=== PATIENT | male | born 1995 | race Caucasian/White ===

== ENCOUNTER 2017-02-01 20:42 | Emergency (ER) | payer OTHER ==
[~2017-02-01] VITALS: Ht 175.3 cm; Wt 86.2 kg
[2017-02-01 20:42] VITALS: BP 136/74
[2017-02-01] MEDS ORDERED: MULT1TAB10 PO (20:51)
[2017-02-01] MEDS ORDERED: PARO40TA2 PO (20:51)
[2017-02-01] MEDS ORDERED: ROZE8TAB9 PO (20:51)
[2017-02-01] MEDS ORDERED: CELE100C PO (20:51)
== END 2017-02-01 22:11 | disposition left against medical advice (07) ==
LOC: M ED 21:43
DX: H93.90 Unspecified disorder of ear, unspecified ear (principal); Z53.29 Procedure and treatment not carried out because of patient's decision for other reasons

== ENCOUNTER 2017-03-16 16:01 | Emergency (ER) | payer OTHER ==
[~2017-03-16] VITALS: Ht 175.3 cm; Wt 83.9 kg
[~2017-03-16 16:01] MED LIST: CELE100C PO; MULT1TAB10 PO; PARO40TA2 PO; ROZE8TAB9 PO
[2017-03-16] MEDS ORDERED: CELE-19 PO (16:10)
[2017-03-16] MEDS ORDERED: LUNE1TAB5 PO (16:10)
[2017-03-16 16:46] LABS: MEAN CORPUSCULAR HEMOGLOBIN 28.6 pg (27.0-33.0); MEAN CORPUSCULAR HGB CONC 36.1 g/dl (32.0-36.5); MEAN CORPUSCULAR VOLUME 79.3 fl (80.0-96.0); RED CELL DISTRIBUTION WIDTH 12.7 % (11.5-14.5)
[2017-03-16 17:09] LABS: METHADONE URINE NEGATIVE (NEGATIVE)
[2017-03-16 17:18] LABS: ALBUMIN 4.4 GM/DL (3.2-5.2); ALBUMIN/GLOBULIN RATIO 1.42 (1.00-1.93); ALKALINE PHOSPHATASE 97 U/L (45-117); ALT/SGPT 46 U/L (12-78); ANION GAP 11 MEQ/L (8-16); AST/SGOT 34 U/L (15-37); BILIRUBIN,DIRECT < 0.1 MG/DL (0.0-0.2); BILIRUBIN,TOTAL 0.4 MG/DL (0.2-1.0); BLOOD UREA NITROGEN 10 MG/DL (7-18); CARBON DIOXIDE LEVEL 24 MEQ/L (21-32); CHLORIDE LEVEL 103 MEQ/L (98-107); GLOMERULAR FILTRATION RATE > 60.0 (>60); GLUCOSE, FASTING 88 MG/DL (70-105); POTASSIUM SERUM 3.6 MEQ/L (3.5-5.1); SODIUM LEVEL 138 MEQ/L (136-145); TOTAL PROTEIN 7.5 GM/DL (6.4-8.2)
[2017-03-16] MEDS ORDERED: NICOTINE 21MG/24HR 1 EA TRANSDERMAL TD ONE (17:45)
[2017-03-16 23:31] VITALS: BP 133/84
== END 2017-03-16 23:35 | disposition home or self-care (01) ==
LOC: M ED 16:55
DX: F43.0 Acute stress reaction (principal); Z79.899 Other long term (current) drug therapy; Z88.2 Allergy status to sulfonamides
CPT/HCPCS: 36415; 80048; 80076; 80306; 84443; 85027; 99284; G0480

== ENCOUNTER 2017-04-15 11:32 | Inpatient (IN) | payer OTHER ==
[~2017-04-15] VITALS: Ht 175.3 cm; Wt 89.3 kg
[~2017-04-15 11:32] MED LIST changes: +CELE-19 PO; +LUNE1TAB5 PO
[2017-04-15 12:24] LABS: MEAN CORPUSCULAR HEMOGLOBIN 28.3 pg (27.0-33.0); MEAN CORPUSCULAR HGB CONC 35.2 g/dl (32.0-36.5); MEAN CORPUSCULAR VOLUME 80.3 fl (80.0-96.0); RED CELL DISTRIBUTION WIDTH 12.7 % (11.5-14.5); WHITE BLOOD COUNT 6.9 K/mm3 (4.0-10.0)
[2017-04-15 12:55] LABS: METHADONE URINE NEGATIVE (NEGATIVE)
[2017-04-15 13:05] LABS: ALBUMIN 4.5 GM/DL (3.2-5.2); ALBUMIN/GLOBULIN RATIO 1.32 (1.00-1.93); ALKALINE PHOSPHATASE 91 U/L (45-117); ALT/SGPT 37 U/L (12-78); ANION GAP 4 MEQ/L (8-16); AST/SGOT 22 U/L (15-37); BILIRUBIN,DIRECT < 0.1 MG/DL (0.0-0.2); BILIRUBIN,TOTAL 0.7 MG/DL (0.2-1.0); BLOOD UREA NITROGEN 13 MG/DL (7-18); CALCIUM LEVEL 9.3 MG/DL (8.5-10.1); CARBON DIOXIDE LEVEL 27 MEQ/L (21-32); CHLORIDE LEVEL 104 MEQ/L (98-107); CREATININE FOR GFR 0.94 MG/DL (0.70-1.30); GLOMERULAR FILTRATION RATE > 60.0 (>60); GLUCOSE, FASTING 79 MG/DL (70-105); POTASSIUM SERUM 4.4 MEQ/L (3.5-5.1); SODIUM LEVEL 135 MEQ/L (136-145); TOTAL PROTEIN 7.9 GM/DL (6.4-8.2)
[2017-04-15 15:06] VITALS: BP 121/75
[2017-04-15] MEDS ORDERED: MOM 30ML SUSPENSION UDC PO PRN (16:00)
[2017-04-15] MEDS ORDERED: MAALOX 30 ML SUSP *UDC PO PRN (16:00)
[2017-04-15] MEDS ORDERED: traZODone 50 MG TAB PO PRN (16:00)
[2017-04-15] MEDS: NICOTINE 14 MG/24 HR TRANSDERMAL TD SCH (16:32)
[2017-04-15 18:30] VITALS: BP_SYST 121
[2017-04-15] MEDS: CelecoXIB (CeleBREX) 100 MG CAP PO SCH (20:54)
[2017-04-15] MEDS ORDERED: PARoxetine 10MG TABLET PO SCH (21:00)
[2017-04-16 06:25] VITALS: BP 143/65
[2017-04-16] MEDS: NICOTINE 14 MG/24 HR TRANSDERMAL TD SCH (08:38)
--- NOTE | 2017-04-16 09:11 | HPEPDOC ---
Medical History and Physical Date of Admission Apr 15, 2017 at 13:25 History and Physical PCP: [facility] ATTENDING: Dr. Hany Wilkins HPI: 22yoM admitted to [facility] for unspecified depressive disorder, being medically examined today. No acute medical complaints today. Denies any fevers, chills, weakness, fatigue, [place], CP, SOB, cough, palpitations, abdominal pain, N/V /D or changes in bowel or bladder habits. PMHx: ODIN. 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 ROS: As noted in HPI, otherwise 11pt ROS of systems reviewed and unremarkable. PE: GEN: 22 yo M, appears stated age. Well-nourished, well developed. No acute distress. Alert and oriented x 3. Pleasant, interactive. HEENT: Normocephalic, atraumatic. Pupils are equal, round, and reactive to light. Extraocular movements are intact. No nystagmus appreciated. Sclera are nonicteric. Conjunctiva without injection. Nose midline. Nasal turbinates without bogginess. EACs both patent BL. TMs both visualized and light with good cone of light, no bulging or erythema. No facial asymmetry. Moist mucous membranes. Dentition fair. Pharynx pink and moist, no cobblestoning. Neck supple , trachea midline. No lymphadenopathy or thyromegaly appreciated. CHEST: Regular rate and rhythm, +S1, +S2 LUNGS: Clear to auscultation bilaterally. No wheezes, rales, or rhonchi. Breathing appears symmetric and easy. Patient is speaking in full sentences. No accessory muscle use. ABD: Round, soft, non-tender, non-distended. +Bowel sounds throughout. No rebound or guarding. No costovertebral angle tenderness. EXT: Pulses 2+ bilaterally dorsalis pedis and radial. No lower extremity edema appreciated. SKIN: [place], dry, warm. Capillary refill <2sec. No rashes. NEURO: Alert and oriented x 3. Cranial nerves III-XII are intact. No focal deficits appreciated. EKG: pending. A&P: 22yoM admitted to [facility] for unspecified depressive disorder 1. Psych. Plan per Psychiatry. Obtain baseline EKG to assure the safety of psychiatric medications as they can prolong the QT interval. 2. ODIN. Continue CPAP. 3. Chronic left knee pain. Patient states pain is controlled. Continue Celebrex 200 mg daily. 4. Follow up with PCP on discharge. 5. Tobacco use. NicoDerm available. 6. Hyponatremia. Sodium noted to be 135. Patient states he is eating eating and drinking now. Recheck BMP. 7. Tattoos done unprofessionally. Patient declines HIV/hepatitis screening at this time. Pt states it has been completed through the . 8. Staff member Ed present throughout exam. Vital Signs Vital Signs Date Time Temp Pulse Resp B/P (MAP) Pulse Ox O2 Delivery O2 Flow Rate FiO2 04/16/17 06:25 97.1 79 16 143/65 (91) 04/15/17 14:55 99 Room Air Laboratory Data Labs 24H Laboratory Tests 2 04/15/17 12:02: Anion Gap 4L, Glomerular Filtration Rate > 60.0, Calcium Level 9.3, Aspartate Amino Transf (AST/SGOT) 22, Alanine Aminotransferase (ALT/SGPT) 37, Alkaline Phosphatase 91, Total Bilirubin 0.7, Direct Bilirubin < 0.1, Total Protein 7.9, Albumin 4.5, Albumin/Globulin Ratio 1.32, Thyroid Stimulating Hormone (TSH) 1.090, Salicylates Level < 1.7L, Urine Amphetamines Screen NEGATIVE, Urine Benzodiazepines Screen NEGATIVE, Urine Opiates Screen NEGATIVE, Urine Methadone Screen NEGATIVE, Acetaminophen Level < 2.0L, Urine Barbiturates Screen NEGATIVE , Urine Phencyclidine Screen NEGATIVE, Urine Cocaine Metabolite Screen NEGATIVE , Urine Cannabinoids Screen NEGATIVE, Ethyl Alcohol Level < 0.003 CBC/BMP Laboratory Tests 04/15/17 12:02 Red Blood Count 5.37, Mean Corpuscular Volume 80.3, Mean Corpuscular Hemoglobin 28.3, Mean Corpuscular Hemoglobin Concent 35.2, Red Cell Distribution Width 12.7 Home Medications Scheduled (Lunesta) 1 Mg Tab, 1 MG PO QHS Celecoxib (Celebrex) 200 Mg Cap, 200 MG PO QHS Paroxetine (Paroxetine HCl) 40 Mg Tab, 40 MG PO QHS Allergies Coded Allergies: Sulfa Antibiotics (Verified Allergy, Unknown, 02/01/17) Lay Dorsey Apr 16, 2017 09:11
[2017-04-16] MEDS: ESCITALOPRAM OXALATE 10 MG TAB (LEXAPRO) PO SCH (10:19)
[2017-04-16 18:00] VITALS: BP 124/63
[2017-04-16] MEDS: CelecoXIB (CeleBREX) 100 MG CAP PO SCH (21:18)
--- NOTE | 2017-04-16 21:23 | MHHPE ---
DATE OF ADMISSION: 04/15/2017 LEGAL STATUS AT ADMISSION: 9.39 legal status. 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 According to the record, patient presented as walk-in at [facility], reporting suicidal ideation with plan for cutting along with self-mutilation. He stated that he has been feeling suicidal intermittently for the past week with a plan of cutting. He was making statements, such as "utting would be the best option, since it's easily accessible." Patient reports superficial cutting on the left forearm while showering. 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 He also stated that he got an article 15 for not being on time, and he has to do extra duty. Along with this, patient says that he was diagnosed with sleep apnea in August 2016. Patient says that he was tired all the time, and his was telling him that he was stopping breathing. He had the sleep electroencephalogram (EEG) done that confirmed the diagnosis. He is supposed to wear a continuous positive airway pressure (CPAP) machine. Patient says that he wears it nightly; however, he also states that he gets 4-6 hours of sleep 2-3 days a week. During the interview today, patient reports feeling depressed with mood swings, going from happy to mad to depressed. Patient sees himself getting more angry recently. Reports low energy that also fluctuates. His appetite and his sleep, as above, also fluctuate. Has intermittent suicidal thoughts. He reports he was cutting in the shower, as stated above, because "I was feeling numb." He reports that his self-esteem also fluctuates, and he is sensitive about what other people think about him. He believes that he needs to have a change in his medication. He is on Paxil, was on 10, was increased to 20, and now is on 40. During the interview, there is no evidence of psychotic symptoms. No auditory or visual hallucinations or delusions. Patient appears to be motivated for treatment. PAST MEDICAL HISTORY: Patient denies any acute medical problems. He reports left knee pain. He also reports sleep apnea and is wearing a CPAP machine. PAST PSYCHIATRIC HISTORY: Patient reports that he has been diagnosed with depression and "minor PTSD." FAMILY HISTORY: Patient does not know any relative that has psychiatric problems or problems with drugs or alcohol. SUBSTANCE ABUSE HISTORY: Patient reports that 3 years ago he was stationed in [place], and he was drinking alcohol excessively. "I could consider myself an alcoholic at that time," but then he said that he cut the drinking and now has no problems. Denies any other substances. SOCIAL HISTORY: Patient was raised by his parents. Reports a completely normal childhood with no abuse or neglect except some bullying that he took care of later on. Patient says that he preferred to have a few good friends. 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 He at age 12 and has a year-old girl. 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 REVIEW OF SYSTEMS: CONSTITUTIONAL: No weight loss, fever, chills, weakness, or fatigue. HEENT: No visual loss, blurry vision, double vision, or yellow sclerae. No hearing losses, nasal congestion, runny nose, or sore throat. SKIN: No rash or itching. CARDIOVASCULAR: No chest pain, chest pressure, chest discomfort, palpitations, or edema. RESPIRATORY: No shortness of breath, cough, or sputum. GASTROINTESTINAL: No anorexia, nausea, vomiting, or diarrhea. No abdominal pain or blood. GENITOURINARY: No burning or pain on urination. NEUROLOGIC: No headache, dizziness, syncope, paralysis, ataxia, numbness, or tingling. MUSCULOSKELETAL: No muscle, back pain, joint pain, or stiffness. HEMATOLOGIC: No anemia, bleeding, or bruising. LYMPHATICS: No history of a splenectomy. ENDOCRINOLOGIC: No report of sweating, cold or heat intolerance. No polyuria or polydipsia. ALLERGIES: No history of asthma, hives, eczema, or rhinitis. PHYSICAL EXAMINATION: As per physician assistance. MENTAL STATUS EXAMINATION: Patient is dressed in [facility]. Patient is cooperative. Speech is soft and monotone. Has fair eye contact. Mood is depressed and anxious. Affect is restricted. Patient is oriented to time, place, person, and situation. Maintains attention and concentration correctly. Instant recall, recent and remote memory are intact. Thought processes are coherent, logical, and goal directed. Patient does not have auditory or visual hallucinations. Patient does not have paranoid, persecutory, somatic, grandiose, or religions delusions. Patient denies homicidal thoughts but reports suicidal ideation. Judgment and insight are limited. DIAGNOSES: AXIS I: Unspecified depressive disorder, rule out major depressive disorder. AXIS II: Deferred. AXIS III: Sleep apnea, right knee pain. INITIAL TREATMENT PLAN: Patient was admitted on a 9.39 legal status. Complete history was obtained. With his permission family will be contacted, and database will be expanded. His medication regimen will be reviewed and changed accordingly. He will be provided with protected environment. He will be treated with individual, group, and milieu therapies. He will also receive supportive psychoeducation. Discharge planning will commence immediately. Length of stay will be between 5-7 days. Outpatient followup will be strongly recommended. The treatment plan will focus initially on depression and risk for suicide.
--- NOTE | 2017-04-17 00:51 | ECGEPIP ---
Stationary ECG Study [facility] Test Date: 2017-04-16 Pat Name: ISAÍAS ALAN Department: Room: [place] [address] Gender: M Forensic Technician: SHANTELL : 1995 Requested By: Lay Allen Order Number: [id number] Reading MD: Diego Smith Measurements Intervals [place] Rate: 65 P: 13 DC: 114 QRS: 34 QRSD: 95 T: 46 QT: 379 QTc: 396 Interpretive Statements SINUS RHYTHM WITH SHORT DC INTERVAL NONSPECIFIC T-WAVE ABNORMALITY NO PRIOR TRACING IN THE SYSTEM Electronically Signed On 04-17-2017 0:50:41 EDT by Diego Smith
[2017-04-17 06:35] VITALS: BP 118/65
[2017-04-17] MEDS: ESCITALOPRAM OXALATE 10 MG TAB (LEXAPRO) PO SCH (08:06)
[2017-04-17] MEDS: NICOTINE 14 MG/24 HR TRANSDERMAL TD SCH (08:07)
[2017-04-17] MEDS ORDERED: PARoxetine 20 MG TAB PO SCH (09:00)
[2017-04-17 09:35] LABS: ANION GAP 9 MEQ/L (8-16); BLOOD UREA NITROGEN 13 MG/DL (7-18); CALCIUM LEVEL 8.8 MG/DL (8.5-10.1); CARBON DIOXIDE LEVEL 26 MEQ/L (21-32); CHLORIDE LEVEL 105 MEQ/L (98-107); CREATININE FOR GFR 0.88 MG/DL (0.70-1.30); GLOMERULAR FILTRATION RATE > 60.0 (>60); GLUCOSE, FASTING 93 MG/DL (70-105); POTASSIUM SERUM 4.3 MEQ/L (3.5-5.1); SODIUM LEVEL 140 MEQ/L (136-145)
--- NOTE | 2017-04-17 17:09 | IPN ---
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 Patient was admitted for depression and suicidal ideation. SUBJECTIVE: "I'm feeling better." OBJECTIVE: No major changes from yesterday. Patient is focused on discharge and would like to be discharged as soon as possible. He is somewhat minimizing symptoms and the events that led to his admission. Patient reports that he slept better with the help of the medication. No evidence of psychotic symptoms. No auditory or visual hallucinations or delusions. Patient denies side effects from the medication. MENTAL STATUS EXAMINATION: Patient dressed in [facility]. Patient is cooperative. Has fair eye contact. Speech is normal in rate, volume, and articulation. Mood is depressed and anxious. Affect is restricted. No delusions or hallucinations. Memory, attention, and concentration are fair. Patient is able to contract for safety while in the hospital. Insight and judgment are limited. ASSESSMENT: 1. Depression. 2. Suicidal ideation. PLAN: 1. Continue Lexapro 10 mg by mouth every morning. 2. Decrease Paxil to 10 mg by mouth every morning. 3. Continue trazodone as needed for insomnia. 4. Continue medication management and individual and group therapy.
[2017-04-17 18:00] VITALS: BP 112/57
[2017-04-17] MEDS: CelecoXIB (CeleBREX) 100 MG CAP PO SCH (20:37)
[2017-04-18 06:00] VITALS: BP 127/73
[2017-04-18] MEDS: ESCITALOPRAM OXALATE 10 MG TAB (LEXAPRO) PO SCH (08:33)
[2017-04-18] MEDS: PARoxetine 10MG TABLET PO SCH (08:33)
[2017-04-18] MEDS: NICOTINE 14 MG/24 HR TRANSDERMAL TD SCH (08:33)
[2017-04-18 18:00] VITALS: BP 118/77
[2017-04-18] MEDS: CelecoXIB (CeleBREX) 100 MG CAP PO SCH (21:06)
[2017-04-18] MEDS: ACETAMINOPHEN TAB 650MG DOSE (2X325MG) PO PRN (23:29)
--- NOTE | 2017-04-19 04:57 | IPN ---
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 At this moment, the patient denies suicidal ideation. Denies homicidal ideation. Denies auditory and visual hallucinations. The patient reports no medication side effects. He states that he has been known for posttraumatic stress disorder (PTSD) and depression. The patient reports that when he was admitted he tried to cut himself, but that now he realizes that it would not have been sim and that he feels stable enough on the medications that he is on that are Paxil 10 mg by mouth daily, trazodone 50 mg by mouth nightly as needed for insomnia, and citalopram or Lexapro 10 mg by mouth daily. He is also on a smoking cessation protocol and he has a nicotine patch 14 mg per 24 hours, one patch daily. Patient is currently stable, will followup tomorrow on 04/19/2017.
[2017-04-19 06:00] VITALS: BP 115/58
[2017-04-19] MEDS: PARoxetine 10MG TABLET PO SCH (08:12)
[2017-04-19] MEDS: ESCITALOPRAM OXALATE 10 MG TAB (LEXAPRO) PO SCH (08:12)
[2017-04-19] MEDS: NICOTINE 14 MG/24 HR TRANSDERMAL TD SCH (08:12)
[2017-04-19] MEDS: NICOTINE 21MG/24HR 1 EA TRANSDERMAL TD SCH (09:00)
[2017-04-19] MEDS: ACETAMINOPHEN TAB 650MG DOSE (2X325MG) PO PRN (10:31)
[2017-04-19 18:00] VITALS: BP 147/84
--- NOTE | 2017-04-19 18:10 | MHIPNPDOC ---
[facility] Progress Note Progress Note DATE OF SERVICE: 04/19/17 INTERVAL HISTORY: Medication Side effects: reports no side effects from his psychiatric medications Behavior/events: has been social, amenable and reportedly doing well on the [facility] Attendance: appears to be attending groups Psychiatric Symptoms: reports that is not experiencing any depression or anxiety symptoms at this time. Describes that he is feeling better, although has some complaints about his nicotine patch being too low and that his toe has an ingrown nail that might be infected. He described that he was slated discharge for soon and was excited about that. Otherwise he had no complaints. VITAL SIGNS: See below. NEW TEST RESULTS: See below CURRENT MEDICATIONS: See below. MENTAL STATUS EXAMINATION: General: Well dressed with good hygiene Speech: Spontaneous and fluid Thought processes: Linear and logical Thought content: future orientated, excitement about discharge Abstract reasoning, and computation: Intact Description of associations: Intact Description of abnormal or psychotic thoughts:Denies any suicidal or homicidal ideation. Denies any auditory or visual hallucinations. Does not appear to be responding to internal stimuli. Does not appear to be endorsing any bizarre or paranoid ideation. Judgment: fair Insight: fair Orientation: Alert and orientated 3 Recent and remote memory: Intact Attention span and concentration: Intact Fund of knowledge: Adequate Mood: "good" Affect: Euthymic with a full range DIAGNOSES: 1. Unspecified depressive disorder. 2. Unspecified anxiety disorder. 3. Nicotine use disorder, severe, on replacement therapy. ASSESSMENT: improving MANAGEMENT PLAN: Medications: continue psychiatric medications as low with no changes from yesterday Psychotherapy: encourage group therapy Social: slated for discharge Misc: patients nicotine increased to 21 mg patch with antibiotic cream given for toe, recommend seeing a final inspector paper when he leaves. Disposition: The patient will need of further inpatient stay to address disposition needs TIME SPENT: 15 minutes. Vital Signs Vital Signs Date Time Temp Pulse Resp B/P (MAP) Pulse Ox O2 Delivery O2 Flow Rate FiO2 04/19/17 06:00 99.4 98 16 115/58 (77) 04/15/17 14:55 99 Room Air Current Medications Current Medications Acetaminophen (Tylenol Tab) 650 mg Q6HP PRN PO HEADACHE or DISCOMFORT Last administered on 04/19/17t 10:31; Start 04/15/17 at 16:00; Stop 05/15/17 at 15:59 Al Hydrox/Mg Hydrox/Simethicone (Mylanta) 30 ml Q4HP PRN PO HEARTBURN/ INDIGESTION; Start 04/15/17 at 16:00; Stop 05/15/17 at 15:59 Celecoxib (CeleBREX) 200 mg QHS PO Last administered on 04/18/17 21:06; Start 04/15/17 at 21:00; Stop 05/15/17 at 20:59 Escitalopram Oxalate (Lexapro) 10 mg DAILY PO Last administered on 04/19/17 08 :12; Start 04/16/17 at 09:00; Stop 05/16/17 at 08:59 Home Med (Med Rec Complete!) ASDIRECTED XX ; Start 04/15/17 at 14:00; Stop at 14:00; Status DC Magnesium Hydroxide (Milk Of Magnesia) 30 ml DAILYPRN PRN PO CONSTIPATION; Start 04/15/17 at 16:00; Stop 05/15/17 at 15:59 Nicotine (Nicoderm Cq 14mg) 1 patch DAILY TD Last administered on 04/19/17 08: 12; Start 04/15/17 at 09:00; Stop 04/19/17 at 12:45; Status DC Nicotine (Nicoderm Cq 21mg) 1 patch DAILY TD ; Start 04/19/17 at 09:00; Stop at 08:59 Paroxetine HCl (PAXil) 10 mg DAILY PO Last administered on 04/19/17 08:12; Start 04/18/17 at 09:00; Stop 04/20/17 at 22:00 Paroxetine HCl (PAXil) 20 mg QAM PO Last administered on 04/17/17 08:06; Start 04/17/17 at 09:00; Stop 04/17/17 at 10:44; Status DC Paroxetine HCl (PAXil) 40 mg QHS PO Last administered on 04/15/17 20:55; Start 04/15/17 at 21:00; Stop 04/16/17 at 10:01; Status DC Prazosin HCl (Minipress) 1 mg QHS PO ; Start 04/19/17 at 21:00; Stop 04/19/17 at 21:00; Status DC Trazodone HCl (Desyrel) 50 mg QHSP PRN PO INSOMNIA; Start 04/15/17 at 16:00; Stop 05/15/17 at 15:59 Allergies Coded Allergies: Sulfa Antibiotics (Verified Allergy, Unknown, 02/01/17) hives GME ATTESTATION My preceptor for this patient encounter was physically present in the building during the encounter and was fully available. As needed, all aspects of the patient interview, examination, medical decision making process, and medical care plan development were reviewed and approved by the preceptor. Preceptor is aware and concurs with the plan as stated in the body of this note and will attest to such by his/her cosignature. PAIGE CARDENAS DO Apr 19, 2017 18:10
[2017-04-19] MEDS: NEOSPORIN TOP OINT 15GM TOP SCH (19:08)
[2017-04-19] MEDS ORDERED: PRAZOSIN 1 MG CAP PO SCH (21:00)
[2017-04-19] MEDS: CelecoXIB (CeleBREX) 100 MG CAP PO SCH (21:47)
[2017-04-20 06:25] VITALS: BP 149/79
[2017-04-20] MEDS: NICOTINE 21MG/24HR 1 EA TRANSDERMAL TD SCH (08:15)
[2017-04-20] MEDS: ESCITALOPRAM OXALATE 10 MG TAB (LEXAPRO) PO SCH (08:21)
[2017-04-20] MEDS: NEOSPORIN TOP OINT 15GM TOP SCH (08:21)
[2017-04-20] MEDS: PARoxetine 10MG TABLET PO SCH (08:21)
[2017-04-20] MEDS ORDERED: PARO5TAB PO (09:24)
[2017-04-20] MEDS ORDERED: ESCI10TA2 PO (09:24)
--- NOTE | 2017-04-20 23:08 | MHDS ---
DATE OF ADMISSION: 04/15/2017 DATE OF DISCHARGE: 04/20/2017 LEGAL STATUS AT ADMISSION: 9.39 legal status. 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 According to the record, patient presented as walk-in at [facility], reporting suicidal ideation with plan for cutting along with self-mutilation. He stated that he has been feeling suicidal intermittently for the past week with plan of cutting. He was making statements, such as "cutting would be the best option, since it is easily accessible." Patient reports superficial cutting on the left forearm while showering. 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 He also stated that he got an Article 15 for not being on time, and he has to do extra duty. Along with this, patient says that he was diagnosed with sleep apnea in August 2016. Reports he was tired all the time. His was telling him that he was stopping breathing while he was sleeping. He had an electroencephalogram (EEG) done that confirmed the diagnosis of sleep apnea. He is supposed to wear a continuous positive airway pressure (CPAP) machine. He says he wears it nightly, but he also states that he gets 4-6 hours of sleep 2-3 days a week. The rest is more normalized. During the interview today, patient reports feeling depressed with mood swings, going from happy to mad to depressed. Patient sees himself getting more angry recently. Reports low energy that also fluctuates. His appetite and his sleep also fluctuate. He has intermittent suicidal thoughts. He also stated that he cut himself in the shower. He feels he needs to have his medication changes, since he does not think his current medication is working. During the interview there is no evidence of psychotic symptoms. No auditory or visual hallucinations or delusions. Patient appeared to be motivated for treatment. LABORATORIES AT ADMISSION: CBC was within normal limits. CMP was unremarkable. TSH within normal limits. UDS was negative. Blood alcohol level was negative. HOSPITAL COURSE: Patient was started on Lexapro 10 mg by mouth every morning, and Paxil was tapered slowly. He also was placed on trazodone as needed for insomnia, but he was sleeping well and did not need to take this medication. Patient had no complications during his hospital admission. He was motivated for treatment and going to all psychotherapeutic activities of the unit. He denied side effects from the medication. By 04/20/2017, patient is in stable condition. Patient is denying suicidal or homicidal ideation. There is no evidence of psychotic symptoms. Denies side effect from the medication and is willing to followup treatment and recommendations so is discharged on this date. MEDICATIONS AT DISCHARGE: - Paxil 10 mg by mouth every morning times 5 days, then discontinue - Lexapro 10 mg by mouth every morning MENTAL STATUS EXAMINATION AT DISCHARGE: Patient is dressed in [facility]. Patient is calm and cooperative. Speech is clear, coherent with normal rate and is spontaneous. Patient has good eye contact. Mood is euthymic. Affect is appropriate and congruent with mood. Patient is oriented to time, place, person, and situation. Maintains attention and concentration correctly. Instant recall, recent and remote memory are intact. Thought processes are coherent, logical, and goal directed. Patient does not have auditory or visual hallucinations. Patient does not have paranoid, persecutory, somatic, grandiose, or gnosticist delusions. Patient denies suicidal or homicidal ideation. Judgment and insight are fair. DISCHARGE DIAGNOSES: AXIS I: Adjustment disorder with depressed and anxious mood. AXIS II: Deferred. AXIS III: Sleep apnea and right knee pain. CONDITION AT DISCHARGE: Stable. No auditory or visual hallucinations. No delusions. No suicidal or homicidal ideation. INSTRUCTIONS TO THE PATIENT: Patient is to continue taking his medication as prescribed and followup appointments. He is advised to maintain absolute sobriety from drugs and alcohol. Patient has scheduled appointment for medication management, individual psychotherapy, and primary care physician.
== END 2017-04-20 11:50 | disposition home or self-care (01) | DRG 882 ==
LOC: M ED 13:06 → M ED INP 13:25 → M PSY 15:03
PROVIDERS: ADMIT Psychiatry & Neurology Psychiatry; ATTEND Psychiatry & Neurology Psychiatry
DX: F43.23 Adjustment disorder with mixed anxiety and depressed mood (principal); R45.851 Suicidal ideations; E87.1 Hypo-osmolality and hyponatremia; Z91.5 Personal history of self-harm; G47.33 Obstructive sleep apnea (adult) (pediatric); Z99.89 Dependence on other enabling machines and devices; M25.561 Pain in right knee; Z79.899 Other long term (current) drug therapy; Z88.2 Allergy status to sulfonamides